=== PATIENT | male | born 1980 | race Caucasian/White ===

== ENCOUNTER 2018-11-07 16:08 | Emergency (ER) | payer BC ==
[2018-11-07] MEDS ORDERED: HYDROmorphone 1 MG/ML Syringe IM ONE (16:16)
[2018-11-07 16:23] VITALS: BP 153/77
--- NOTE | 2018-11-07 16:56 | CRLCR ---
HISTORY: Right hand injury. TECHNIQUE: Three views of the right hand. COMPARISON: No prior. FINDINGS: There is soft tissue gas involving the distal 2nd digit which may relate to a soft tissue laceration. No acute fracture of the distal phalanx the 2nd digit. There is lucency involving the distal pauly of the distal phalanges of the 3rd and 4th digits suspicious for minimally displaced fractures. The bases of those distal phalanges are intact. The osseous structures are otherwise intact. Joint spaces are maintained. IMPRESSION: 1. Lucency involving the distal pauly of the distal phalanges of the 3rd and 4th digits likely indicating minimally displaced fractures. 2. Soft tissue gas involving the distal 2nd digit likely related to soft tissue injury. Dictated by Garcia Maza MD @ 11/07/2018 4:54:25 PM Dictated by: Garcia Maza MD @ 11/07/2018 16:54:27 (Electronically Signed)
[2018-11-07] MEDS ORDERED: Ketorolac 60 MG/2 ML SDV IM ONE (17:01)
[2018-11-07] MEDS ORDERED: Diphtheria,Pertussis(Acell),Tetanus Vaccine 0.5 ML SDV IM ONE (17:11)
--- NOTE | 2018-11-07 17:17 | EDM.PDOC ---
ED HPI GENERAL MEDICAL PROBLEM - General Chief Complaint: Upper Extremity Injury/Pain Stated Complaint: HAND CUT BY CUSTOM SEAMSTRESS Time Seen by Provider: 11/07/18 16:59 Source of Information: Reports: Patient, Family, RN Notes Reviewed History Limitations: Reports: No Limitations - History of Present Illness INITIAL COMMENTS - FREE TEXT/NARRATIVE: 37-year-old gentleman presents emergency department today following an injury at home where he accidentally got his right hand in the impeller of the snowblower he has injury on digit to 3 and 4 Right Hand Pain Score (Numeric/FACES): 10 - Related Data Allergies Allergy/AdvReac Type Severity Reaction Status Date / Time No Known Allergies Allergy Verified 04/08/15 22:40 Home Meds: Home Meds NK [No Known Home Meds] 04/08/15 [History] Past Medical History Neurological History: Reports: Concussion - Past Surgical History GI Surgical History: Reports: Hernia, Inguinal Social & Family History - Tobacco Use Smoking Status *Q: Never Smoker Review of Systems - Review of Systems Review Of Systems: See Below Skin: Reports: Wound Neurological: Reports: No Symptoms ED EXAM, GENERAL - Physical Exam Exam: See Below Free Text/Narrative:: Examination the right hand pedal pulse is +2 he has full range of motion all digits he does have a 1 cm laceration on the dorsal aspect digit #3 in between the DIP and PIP joints he does have subungual hematomas digits to 3 and 4 some edema is appreciated very tender to the touch Exam Limited By: No Limitations General Appearance: Alert, Mild Distress ED TRAUMA EXTREMITY PROCEDURES - Laceration/Wound Repair Right Digit - 3rd (Middle) Lac/Wound Length In cm: 2 Appearance: Subcutaneous, Linear Distal NVT: Neuro & Vascular Intact, No Tendon Injury Anesthetic Type: Digital Local Anesthesia - Lidocaine (Xylocaine): 1% Plain Local Anesthetic Volume: 5cc Skin Prep: Chlorhexidine (Hibiciens), Saline Saline Irrigation (cc's): 30 Exploration/Debridement/Repair: Wound Explored, In a Bloodless Field, Explored to Base Closed With: Sutures Suture Size: 4-0 # of Sutures: 4 Suture Type: Nylon, Interrupted Sterile Dressing Applied: Nurse Tetanus Status Addressed: Yes Complications: No - Additional/Other Procedure(s) Other (Free Text) Procedure(s): Preoperative diagnosis subungual hematoma digit 2,3,4 right hand Postoperative diagnosis status post evacuation Surgeon Saw OfficerMD Verbal consent was obtained prior to procedure risks and benefits were discussed patient is in agreement and wishes to proceed. Anesthesia did a digital blocks 2 3 and 4 Estimated blood loss minimal Specimens none Summary procedure: Timeout was performed prior to initiation procedure identified correct site, correct patient and correct procedure. After adequate anesthesia with a digital blocks electrocautery was used to place small pinholes in the nail of digits 2, 3 and 4 minimal amount of blood was present but pressure was relieved Complications none apparent Disposition follow-up primary care as needed Course - Vital Signs Last Recorded V/S: Last Vital Signs Temp 96.6 F 11/07/18 16:18 Pulse 71 11/07/18 16:18 Resp 16 11/07/18 16:18 BP 153/77 H 11/07/18 16:18 Pulse Ox 97 11/07/18 16:18 - Orders/Labs/Meds Orders: Active Orders 24 hr Category Date Time Status Vaccines to be Administered [RC] PER UNIT ROUTINE Care 11/07/18 17:11 Active Meds: Medications Discontinued Medications Generic Name Dose Route Start Last Admin Trade Name Tarunq PRN Reason Stop Dose Admin Bacitracin 1 dose 11/07/18 17:53 11/07/18 18:07 Bacitracin Oint 1 Gm TOP 11/07/18 17:54 1 dose ONETIME ONE Administration Diphtheria/Tetanus/Acell Pertussis 0.5 ml 11/07/18 17:11 11/07/18 17:18 Adacel IM 11/07/18 17:12 0.5 ml .ONCE ONE Administration Hydromorphone HCl 1 mg 11/07/18 16:16 11/07/18 16:26 Dilaudid IM 11/07/18 16:17 1 mg ONETIME ONE Administration Ketorolac Tromethamine 60 mg 11/07/18 17:01 11/07/18 17:12 Toradol IM 11/07/18 17:02 60 mg ONETIME ONE Administration Lidocaine HCl 5 ml 11/07/18 17:07 11/07/18 17:19 Xylocaine-Mpf 1% INJECT 11/07/18 17:08 5 ml ONETIME ONE Administration Lidocaine HCl 5 ml 11/07/18 17:53 11/07/18 18:07 Xylocaine-Mpf 1% INJECT 11/07/18 17:54 5 ml ONETIME ONE Administration Departure - Departure Time of Disposition: 18:16 Disposition: Home, Self-Care 01 Condition: Fair Clinical Impression: Fracture of distal phalanx of finger of right hand Laceration of finger, middle Qualifiers: Encounter type: initial encounter Damage to nail status: with damage Foreign body presence: without foreign body Laterality: right Qualified Code(s): S61.312A - Laceration without foreign body of right middle finger with damage to nail, initial encounter - Discharge Information Referrals: PCP,None [Primary Care Provider] - Forms: ED Department Discharge Additional Instructions: Remain in the splints to protect the fractures, use hydrocodone for breakthrough pain if ibuprofen is not sufficient, please follow-up with orthopedics next week for reevaluation - My Orders Last 24 Hours: My Active Orders 11/07/18 17:11 Vaccines to be Administered [RC] PER UNIT ROUTINE - Assessment/Plan Last 24 Hours: My Active Orders 11/07/18 17:11 Vaccines to be Administered [RC] PER UNIT ROUTINE Plan: Assessment Acuity = acute Site and laterality = subungual hematomas digits 2, 3, 4, 2 cm laceration dorsal surface digit #3 in between PIP and DIP joint plus fractures digits 3 and 4 distal tuft Etiology = secondary trauma with a snowblower Manifestations = [pain Location of injury = Home Lab values = x-ray describes fractures above Plan He was placed in splints over the to protect the the distal pauly of digits to 3 and 4 he'll follow-up with orthopedics next week, hydrocodone 5/325 one tab by mouth every 4 hours when necessary total #10 This note was dictated using [employer] voice recognition software please call with any questions on syntax or grammar.
[2018-11-07] MEDS ORDERED: Bacitracin Oint 1 GM U/D Packet TOP ONE (17:53)
== END 2018-11-07 18:36 | disposition home or self-care (01) ==
LOC: JP.ED 16:08
DX: S62.632A Displaced fracture of distal phalanx of right middle finger, initial encounter for closed fracture (principal); S62.634A Displaced fracture of distal phalanx of right ring finger, initial encounter for closed fracture; S60.121A Contusion of right index finger with damage to nail, initial encounter; Z23 Encounter for immunization; W22.8XXA Striking against or struck by other objects, initial encounter; Y92.009 Unspecified place in unspecified non-institutional (private) residence as the place of occurrence of the external cause
CPT/HCPCS: 11740; 12001; 73130; 90471; 90715; 96372; 99283; J1170; J1885; J2001

== ENCOUNTER 2020-05-21 11:55 | Emergency (ER) | payer BC ==
[2020-05-21] MEDS ORDERED: Bacitracin Oint 1 GM U/D Packet TOP ONE (12:10)
[2020-05-21] MEDS ORDERED: Lidocaine 1% with EPINEPHrine 1:100,000 50 ML MDV INJECT ONE (12:10)
--- NOTE | 2020-05-21 12:13 | EDM.PDOC ---
ED HPI GENERAL MEDICAL PROBLEM - General Chief Complaint: Laceration Stated Complaint: HIT CHIN Time Seen by Provider: 05/21/20 12:10 Source of Information: Reports: Patient, RN History Limitations: Reports: No Limitations - History of Present Illness INITIAL COMMENTS - FREE TEXT/NARRATIVE: Juan is a 39 year old male whom presents [place] [facility] for evaluation of chin laceration which occurred this am. Juan jumped in the back of truck and strike his chin on something in the back of the truck. Juan denies LOC, jaw pain, neck injury/pain or head injury concerns. Juan has had 3 concussions in the past and aware of concussion symptoms to watch for after injury. Juan denies upper or lower extremity injury or pain at this time. - Related Data Allergies Allergy/AdvReac Type Severity Reaction Status Date / Time No Known Allergies Allergy Verified 05/21/20 12:08 Home Meds: Home Meds NK [No Known Home Meds] 04/08/15 [History] Past Medical History - Past Health History Medical/Surgical History: Denies Medical/Surgical History Musculoskeletal History: Reports: Other (See Below) Other Musculoskeletal History: R 2nd, 3rd and 4th finger fx Neurological History: Reports: Concussion - Past Surgical History GI Surgical History: Reports: Hernia, Inguinal Male Surgical History: Reports: Vasectomy Social & Family History - Caffeine Use Caffeine Use: Reports: Coffee ED ROS GENERAL - Review of Systems Review Of Systems: Comprehensive ROS is negative, except as noted in HPI. ED EXAM, SKIN/RASH Exam: See Below Exam Limited By: No Limitations General Appearance: Alert, WD/WN, No Apparent Distress Eye Exam: Bilateral Eye: EOMI, Normal Inspection, PERRL Ears: Hearing Grossly Normal Nose: Normal Inspection Throat/Mouth: Normal Inspection, Normal Lips, Normal Teeth, Normal Voice, No Airway Compromise, Other (no TMJ joint discomfort wiht movement of jaw or masteter muscle pain) Head: Normocephalic, Other (laceration stellete under chin full thickness) Neck: Non-Tender, Full Range of Motion. No: Tender Midline Respiratory/Chest: No Respiratory Distress, Lungs Clear, Normal Breath Sounds Cardiovascular: Normal Peripheral Pulses, Regular Rate, Rhythm Extremities: Normal Inspection, Normal Range of Motion Neurological: Alert, Oriented, CN II-XII Intact, Normal Cognition, Normal Gait, No Motor/Sensory Deficits Psychiatric: Normal Affect, Normal Mood Skin: Other (laceraion under chin) ED SKIN PROCEDURES - Laceration/Wound Repair Face Anesthetic Type: Local Local Anesthesia - Lidocaine (Xylocaine): 1% with EPI Local Anesthetic Volume: 3cc Skin Prep: Chlorhexidine (Hibiciens), Saline Saline Irrigation (cc's): 100 Exploration/Debridement/Repair: Wound Explored, In a Bloodless Field, Explored to Base, Minimal Debridement, No Foreign Material Found, Wound Margins Revised Closed with: Sutures Lac/Wound length In cm: 3.5 (V flap) Suture Size: 6-0 # of Sutures: 5 Suture Type: Prolene Suture Size: 5-0 # of Sutures: 3 Repaired with: Other (Monocryl) Sterile Dressing Applied: None (ointment offered) Tetanus Status Addressed: Yes (Up to Date October 2018) Course - Vital Signs Last Recorded V/S: Last Vital Signs Temp 36.1 C 05/21/20 12:12 Pulse 69 05/21/20 12:12 Resp 14 05/21/20 12:12 BP 132/65 05/21/20 12:12 Pulse Ox 98 05/21/20 12:12 - Orders/Labs/Meds Meds: Medications Discontinued Medications Generic Name Dose Route Start Last Admin Trade Name Tarunq PRN Reason Stop Dose Admin Bacitracin 1 dose 05/21/20 12:10 05/21/20 12:18 Bacitracin Oint 1 Gm TOP 05/21/20 12:11 1 dose ONETIME ONE Administration Lidocaine/Epinephrine 5 ml 05/21/20 12:10 05/21/20 12:18 Xylocaine 1% With Epinephrine 1:100,000 INJECT 05/21/20 12:11 5 ml ONETIME ONE Administration - Re-Assessments/Exams Free Text/Narrative Re-Assessment/Exam: Juan became a bit lightheaded, pale and nauseated during suture placement. Juan verified that he drank alcohol last night, no breakfast or lunch today. Likely the course of symptoms and not due to significant head injury. Juan was offered water, crackers, juice and peanut butter to ensure feeling better and safe to drive home. 05/21/20 12:53 Departure - Departure Time of Disposition: 13:10 Disposition: Home, Self-Care 01 Clinical Impression: Laceration of face - Discharge Information Instructions: Laceration Care, Adult, Sutured Wound Care Referrals: PCP,None [Primary Care Provider] - Forms: ED Department Discharge Additional Instructions: 1. Keep wound clean and dry x 24 hours. May shower normally and use soap and water to cleanse every am and pm. (Topical ointment if irritation or become dry) 2. Avoid shaving in the area (Blue sutures used to help ease removal in 5-7 days. 3. Call PCP for recheck in 5-7 days for suture removal and wound check 4. Review Head injury information regarding possible concussion symptoms which may occur in 2 days to 2 weeks after injury. 5. Jaw strain or pain may occur due to chin injury. 6. Return to ER if head injury, wound or post concussion concerns noted. Sepsis Event Note (ED) - Focused Exam Vital Signs: Vital Signs Temp Pulse Resp BP Pulse Ox 05/21/20 12:12 36.1 C 69 14 132/65 98
[2020-05-21 12:18] VITALS: BP 132/65; PULSE 69
== END 2020-05-21 13:18 | disposition home or self-care (01) ==
LOC: JP.ED 11:55
DX: S01.81XA Laceration without foreign body of other part of head, initial encounter (principal); V09.9XXA Pedestrian injured in unspecified transport accident, initial encounter; Y93.39 Activity, other involving climbing, rappelling and jumping off
CPT/HCPCS: 12013; 99282-25

== ENCOUNTER 2020-10-16 04:32 | Emergency (ER) | payer BC ==
--- NOTE | 2020-10-16 04:51 | EDM.PDOC ---
ED HPI GENERAL MEDICAL PROBLEM - General Stated Complaint: MEDICAL VIA [place]TH Time Seen by Provider: 10/16/20 04:32 Source of Information: Reports: Patient History Limitations: Reports: No Limitations - History of Present Illness INITIAL COMMENTS - FREE TEXT/NARRATIVE: 39-year-old male who was exposed to cold tonight after having an argument with his he tried to walk to a local business. It was farther away than he thought and it is very cold out tonight, when he realized he was starting to get frostbite on his hands and ears he called EMS. Classification Control Clerk's department arrived fairly soon, found him to have dusky fingers and earlobes and very cold, they warmed him in the car until EMS arrived. They still felt his fingers looked dusky as well as his ears but he was alert, intoxicated but otherwise communicating normally. Onset: Unknown/Unsure Associated Symptoms: Denies: Confusion, Chest Pain, Nausea/Vomiting, Shortness of Breath, Weakness Generalized Pain Score (Numeric/FACES): 4 - Related Data Allergies Allergy/AdvReac Type Severity Reaction Status Date / Time No Known Allergies Allergy Verified 10/16/20 04:54 Home Meds: Home Meds NK [No Known Home Meds] 10/16/20 [History] ED ROS GENERAL - Review of Systems Review Of Systems: See Below Constitutional: Denies: Fever, Chills Respiratory: Denies: Shortness of Breath Cardiovascular: Denies: Chest Pain GI/Abdominal: Denies: Nausea, Vomiting Skin: Reports: Change in Color (Some cyanosis of the distal fingers especially on the right hand, slow capillary refill.) Neurological: Denies: Confusion, Headache ED EXAM, GENERAL - Physical Exam Exam: See Below Exam Limited By: Intoxication General Appearance: Alert, No Apparent Distress Eye Exam: Bilateral Eye: Normal Inspection Head: Atraumatic, Other (Ear helix is pink, no blisters or discoloration bilaterally) Respiratory/Chest: No Respiratory Distress, Lungs Clear Cardiovascular: Regular Rate, Rhythm GI/Abdominal: Non-Tender Extremities: Other (Feet are cool to palpation but capillary refill is normal bilaterally. Hand capillary refill is normal on the left, the right distal fingers are dusky and refill is slow. 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) Course - Vital Signs Last Recorded V/S: Last Vital Signs Temp 97.0 F 10/16/20 04:49 Pulse 84 10/16/20 04:49 Resp 25 H 10/16/20 04:49 BP 155/95 H 10/16/20 04:49 Pulse Ox 97 10/16/20 04:49 - Orders/Labs/Meds Labs: Laboratory Tests 10/16/20 10/16/20 10/16/20 Range/Units 04:40 04:40 04:40 WBC 9.3 (4.5-11.0) K/uL RBC 5.65 (4.30-5.90) M/uL Hgb 16.3 H (12.0-15.0) g/dL Hct 48.5 (40.0-54.0) % MCV 86 (80-98) fL MCH 29 (27-31) pg MCHC 34 (32-36) % Plt Count 272 (150-400) K/uL Neut % (Auto) 81 H (36-66) % Lymph % (Auto) 14 L (24-44) % Weston % (Auto) 5 (2-6) % Eos % (Auto) 1 L (2-4) % Baso % (Auto) 0 (0-1) % Sodium 142 (140-148) mmol/L Potassium 4.1 (3.6-5.2) mmol/L Chloride 104 (100-108) mmol/L Carbon Dioxide 26 (21-32) mmol/L Anion Gap 11.9 (5.0-14.0) mmol/L BUN 11 (7-18) mg/dL Creatinine 0.9 (0.8-1.3) mg/dL Est Cr Clr Drug Dosing 101.41 mL/min Estimated GFR (MDRD) > 60 (>60) Glucose 106 (74-106) mg/dL Calcium 8.9 (8.5-10.1) mg/dL Creatine Kinase 417 H (39-308) U/L Ethyl Alcohol 228 mg/dL Meds: Medications Discontinued Medications Generic Name Dose Route Start Last Admin Trade Name Freq PRN Reason Stop Dose Admin Ibuprofen 800 mg 10/16/20 04:52 10/16/20 04:59 Motrin PO 10/16/20 04:53 800 mg ONETIME ONE Administration - Re-Assessments/Exams Free Text/Narrative Re-Assessment/Exam: 10/16/20 04:56 Core body temperature was obtained and was 97 degrees. Patient was warmed with a LIZZETH hugger, he refused an IV. CBC BMP EtOH and CK were obtained. The ring was removed from his finger in case there is further swelling. He was given 800 mg of ibuprofen, refused any IV or IM medications. I am going to have him follow-up with Dr. Obrien in the next 48 hours to follow any frostbite damage to his fingers, ears or toes. 10/16/20 06:25 CK was mildly elevated at 417, EtOH was 0.228. Rest of his labs were normal. Departure - Departure Time of Disposition: 05:34 Disposition: Home, Self-Care 01 Clinical Impression: Frostbite of hand, right Qualifiers: Encounter type: initial encounter Qualified Code(s): T33.521A - Superficial frostbite of right hand, initial encounter - Discharge Information Instructions: Frostbite, [id number] Referrals: PCP,None [Primary Care Provider] - Forms: ED Department Discharge Care Plan Goals: A regular anti-inflammatory would be beneficial, I would recommend a recheck with Dr. Obrien at the clinic in the next couple of days to follow any damage that develops to the fingers or other areas from the frostbite. Sepsis Event Note (ED) - Focused Exam Vital Signs: Vital Signs Temp Pulse Resp BP Pulse Ox 10/16/20 04:49 97.0 F 84 25 H 155/95 H 97
[2020-10-16] MEDS ORDERED: Ibuprofen 800 MG Tab PO ONE (04:52)
[2020-10-16 04:54] VITALS: BP 155/95; PULSE 84
== END 2020-10-16 05:23 | disposition home or self-care (01) ==
LOC: EDBD → JP.ED 04:32 → MERGE 04:32 → JP.ED 05:23
DX: T33.522A Superficial frostbite of left hand, initial encounter (principal); T33.521A Superficial frostbite of right hand, initial encounter; T33.012A Superficial frostbite of left ear, initial encounter; T33.011A Superficial frostbite of right ear, initial encounter; R79.89 Other specified abnormal findings of blood chemistry; X31.XXXA Exposure to excessive natural cold, initial encounter
CPT/HCPCS: 36415; 80048; 80307; 82550; 85025; 99284; A9270; 99283